=== PATIENT | female | born 1995 | race Caucasian/White ===

== ENCOUNTER → 2016-05-06 | Outpatient (CLI) | payer BC ==
[2016-05-10 11:57] LABS: CHLAMYDIA TRACH RNA*** NOT DETECTED (NOT DETECTED); GC (NEIS GONORRHOEAE)RNA** NOT DETECTED (NOT DETECTED)
== END | disposition home or self-care (01) ==
LOC: C.LABSPEC 16:28
PROVIDERS: ATTEND Obstetrics & Gynecology
DX: L29.8 Other pruritus (principal); Z11.3 Encounter for screening for infections with a predominantly sexual mode of transmission